=== PATIENT | male | born 1980 ===

== ENCOUNTER 2021-07-15 18:55 | Outpatient (REF) | payer MEDICAID, SELFPAY ==
[2021-07-15 15:39] LABS: Hemoglobin A1C 5.2 % (<5.7)
[2021-07-15 15:48] LABS: Calculated LDL 94 mg/dL (<100); Cholesterol 185 mg/dL (<200); Folate 17.7 ng/mL (8.6-20.0); HDL Cholesterol 82 mg/dL (40-60); Magnesium 1.9 mg/dL (1.8-2.4); Triglyceride 48 mg/dL (<150); Vitamin B12 458 pg/mL (193-986)
[2021-07-16 10:32] LABS: Hepatitis C Ab w Rflx HCV PCR Negative (Negative)
[2021-07-16 10:36] LABS: HIV-1/2 Ag & Ab Screen Negative (Negative)
== END 2021-07-15 18:56 | disposition home or self-care (01) ==
LOC: NCHCN 18:55
PROVIDERS: PCP Nurse Practitioner Family; Visit Provider Nurse Practitioner Family
DX: R25.1 Tremor, unspecified (principal); Z11.4 Encounter for screening for human immunodeficiency virus [HIV]; R73.9 Hyperglycemia, unspecified; Z13.220 Encounter for screening for lipoid disorders; Z11.59 Encounter for screening for other viral diseases
CPT/HCPCS: 80061; 86803; 87389; 82607; 82746; 83036; 83735

== ENCOUNTER 2021-08-26 21:16 | Outpatient (REF) | payer MEDICAID, SELFPAY ==
[2021-08-26 21:43] LABS: Abs Immature Grans 0.02 10^3/uL (0.0-0.06); Absolute Basophil Count 0.04 10^3/uL (0.0-0.2); Absolute Eosinophil Count 0.06 10^3/uL (0.0-0.7); Absolute Lymphocyte Count 1.19 10^3/uL (1.2-3.4); Absolute Monocyte Count 0.31 10^3/uL (0.1-0.8); Absolute Neutrophil Count 3.81 10^3/uL (1.2-6.7); Basophils % 0.7; Eosinophils % 1.1; HCT 42.8 % (40.0-50.0); HGB 14.1 g/dL (13.5-17.5); Immature Grans % 0.4; Lymphocytes % 21.9; MCH 28.7 pg (27.0-33.0); MCHC 32.9 % (32.0-36.0); MCV 87 fL (80-95); MPV 10.6 fL (8.0-11.0); Monocytes % 5.7; Neutrophils % 70.2; Platelet Count 319 10^3/uL (130-400); RBC 4.92 10^6/uL (4.36-5.78); RDW 12.1 % (11.8-14.1); RDW-SD 38.6 fL; WBC 5.43 10^3/uL (4.4-10.8)
[2021-08-26 21:52] LABS: ALT 31 U/L (16-63); AST 29 U/L (15-37); Albumin 4.1 g/dL (3.4-5.0); Alkaline Phosphatase 50 U/L (46-116); Anion Gap 7.7 mmol/L (3-11); BUN 17 mg/dL (7-18); Bilirubin, Total 0.4 mg/dL (0.2-1.0); CO2 26.3 mmol/L (21.0-32.0); CREATININE 0.9 mg/dL (0.70-1.30); Chloride 103 mmol/L (98-107); Glucose 114 mg/dL (74-106); Potassium 4.1 mmol/L (3.5-5.1); Sodium 137 mmol/L (136-145); Total Protein 7.2 g/dL (6.4-8.2)
[2021-08-26 22:05] LABS: ESR < 1 mm/hr (0-15)
[2021-08-27 17:58] LABS: CRP, High Sensitivity <0.34 mg/L (See Note)
== END 2021-08-26 21:17 | disposition home or self-care (01) ==
LOC: NCHCN 21:16
PROVIDERS: PCP Nurse Practitioner Family; Visit Provider Nurse Practitioner Family
DX: R10.9 Unspecified abdominal pain (principal); D72.820 Lymphocytosis (symptomatic); R73.9 Hyperglycemia, unspecified; R07.81 Pleurodynia; R25.1 Tremor, unspecified
CPT/HCPCS: 80053; 85652; 86141; 85025